=== PATIENT | female | born 1970 | race Caucasian/White ===

== ENCOUNTER 2025-04-12 21:13 | Outpatient (CLI) | payer BC, SELFPAY | END 2025-04-12 21:14 | disposition home or self-care (01) | LOC: SLEEP 21:14 | PROVIDERS: Visit Provider Physician Assistant Medical | DX: G47.33 Obstructive sleep apnea (adult) (pediatric) (principal); R09.02 Hypoxemia | CPT/HCPCS: 95811 ==